=== PATIENT | male | born 1955 | race Caucasian/White ===

== ENCOUNTER → 2024-12-13 09:08 | Outpatient (REF) | payer OTHER, SELFPAY | LOC: RST 09:08 | PROVIDERS: ATTENDING PHYSICIAN Family Medicine | DX: K21.9 Gastro-esophageal reflux disease without esophagitis (principal); R13.12 Dysphagia, oropharyngeal phase | CPT/HCPCS: 74230; 92611; 93005 ==

== ENCOUNTER → 2025-01-13 08:56 | Outpatient (REF) | payer OTHER, SELFPAY | LOC: RCS 08:56 | PROVIDERS: ATTENDING PHYSICIAN Family Medicine | DX: R06.02 Shortness of breath (principal) | CPT/HCPCS: 93306 ==

== ENCOUNTER → 2025-01-14 10:30 | Outpatient (REF) | payer OTHER, SELFPAY | LOC: RAD 10:30 | PROVIDERS: ATTENDING PHYSICIAN Family Medicine | DX: K21.9 Gastro-esophageal reflux disease without esophagitis (principal); R13.12 Dysphagia, oropharyngeal phase | CPT/HCPCS: 74221 ==